=== PATIENT | male | born 1995 | race Caucasian/White ===

== ENCOUNTER 2019-12-28 12:20 | Outpatient (REF) | payer BC, SELFPAY | END 2019-12-28 12:21 | disposition home or self-care (01) | LOC: HO.WFDLDS 12:20 | PROVIDERS: Visit Provider Internal Medicine | DX: Z20.828 Contact with and (suspected) exposure to other viral communicable diseases (principal) | CPT/HCPCS: C9803; U0003 ==

== ENCOUNTER 2020-04-10 14:06 | Outpatient (REF) | payer BC, SELFPAY | END 2020-04-10 14:07 | disposition home or self-care (01) | LOC: HO.LNP 14:06 | PROVIDERS: Visit Provider Family Medicine | DX: Z20.822 Contact with and (suspected) exposure to COVID-19 (principal); R05 Cough | CPT/HCPCS: U0003; U0005 ==

== ENCOUNTER 2021-12-09 12:23 | Outpatient (REF) | payer BC, SELFPAY ==
[2021-12-09 14:31] LABS: Alanine Aminotransferase 111 U/L (0-40); Albumin Level 4.6 g/dL (3.5-5.0); Alkaline Phosphatase 49 U/L (39-117); Anion Gap 16 (12-20); Aspartate Amino Transferase 48 U/L (5-37); Bilirubin Total 0.9 mg/dL (0.0-1.0); Blood Urea Nitrogen 18 mg/dL (9-16); Calcium 9.8 mg/dL (8.4-10.2); Carbon Dioxide 25 mmol/L (22-29); Chloride 104 mmol/L (96-108); Cholesterol 167 mg/dL; Estimated Glomerular Filt Rate > 60; Glucose Fasting 91 mg/dL (60-99); HDL Cholesterol 38 mg/dL; LDL Cholesterol Calculated 106 mg/dl; Potassium 4.4 mmol/L (3.3-5.1); Sodium 141 mmol/L (135-145); Total Protein 7.7 g/dL (6.5-8.0); Triglycerides 115 mg/dL
[2021-12-09 14:49] LABS: TSH reflex Free T4 2.83 uIU/mL (0.32-4.0)
[2021-12-09 15:04] LABS: Syphilis Screen Nonreactive (Nonreactive)
[2021-12-09 16:43] LABS: CT PCR NOT DETECTED (Not Detect.); NG PCR NOT DETECTED (Not Detect.)
[2021-12-10 07:54] LABS: HBS Num1 0.38 mIU/mL (0-7.99); HBc Num1 0.11 S/CO (0.00-0.79); HBsAGNum1 0.19 S/CO (0.00-0.99); HIV AB/AG Nonreactive (Nonreactive); HIV Num 1 0.06 S/CO (0.00-0.99); Hepatitis B Core Antibody Nonreactive (Nonreactive); Hepatitis B Surface Antigen Negative (Negative); ~HepC Num1 0.15 S/CO (0.00-0.79); ~Hepatitis B Surface Antibody NONREACTIVE (Nonreactive); ~Hepatitis C Antibody Nonreactive (Nonreactive)
== END 2021-12-09 12:24 | disposition home or self-care (01) ==
LOC: HO.WFDLDS 12:23
PROVIDERS: Visit Provider Family Medicine
DX: Z00.00 Encounter for general adult medical examination without abnormal findings (principal); Z11.3 Encounter for screening for infections with a predominantly sexual mode of transmission
CPT/HCPCS: 36415; 80053; 80061; 84443; 86704; 86706; 86780; 86803; 87340; 87389; 87491; 87591

== ENCOUNTER 2022-02-26 12:29 | Outpatient (REF) | payer BC, SELFPAY ==
[2022-02-26 14:42] LABS: Anion Gap 14 (12-20)
[2022-02-26 14:47] LABS: Carbon Dioxide 24 mmol/L (22-29)
[2022-02-26 14:52] LABS: Alanine Aminotransferase 114 U/L (0-40); Albumin Level 4.4 g/dL (3.5-5.0); Alkaline Phosphatase 55 U/L (39-117); Aspartate Amino Transferase 50 U/L (5-37); Blood Urea Nitrogen 16 mg/dL (9-16); Calcium 9.5 mg/dL (8.4-10.2); Chloride 106 mmol/L (96-108); Estimated Glomerular Filt Rate > 60; Glucose Random 93 mg/dL (60-115); Potassium 4.3 mmol/L (3.3-5.1); Sodium 140 mmol/L (135-145); Total Protein 7.5 g/dL (6.5-8.0)
== END 2022-02-26 12:30 | disposition home or self-care (01) ==
LOC: HO.WFDLDS 12:29
PROVIDERS: Visit Provider Family Medicine
DX: R74.8 Abnormal levels of other serum enzymes (principal)
CPT/HCPCS: 36415; 80053

== ENCOUNTER 2022-04-21 09:48 | Outpatient (REF) | payer BC, SELFPAY ==
--- NOTE | ~2022-04-21 | US_ITS ---
EXAMINATION: US ABDOMEN LIMITED WITH LIVER ELASTOGRAPHY CLINICAL INFORMATION: Abnormal serum enzymes. COMPARISON: None. TECHNIQUE: Real-time imaging of the abdominal viscera. Noninvasive ultrasound liver fibrosis assessment is performed using Cheyanne ElastPQ point quantification shear wave elastography (2D-SWE) with a C5-2 MHz transducer. Multiple elastography samples are obtained. FINDINGS: PANCREAS: Normal. The visualized pancreatic head and body are normal in appearance. The remainder of the pancreas is obscured from visualization by the overlying bowel gas. LIVER: The liver demonstrates normal size, contour and generalized increase echogenicity. No focal lesion or intrahepatic biliary duct dilatation. The right lobe measures 19.4 cm in length. The left lobe measures 12.8 cm in length. Portal flow is towards the liver (hepatopetal). Shear wave liver elastography median stiffness is 1.75 m/s (reference: normal median stiffness is 1.3 m/s or less). IQR/median stiffness to assess sampling precision is 0.17 (reference: good quality data set is IQR/median stiffness of 0.15 or less). GALLBLADDER: Surgically absent. COMMON BILE DUCT: Normal in caliber measuring 0.5 cm in diameter. RIGHT KIDNEY: Normal. No hydronephrosis. No renal calculi or focal parenchymal lesions. The kidney measures 10.7 cm in maximum dimension. FREE FLUID: None. US/US abdomen foster w elastography IMPRESSION: 1. There is generalized increase in hepatic echotexture, consistent with fatty infiltration or hepatocellular disease. Please correlate clinically. No focal hepatic mass or intrahepatic biliary dilatation is seen. 2. There is hepatomegaly. 3. Liver elastography: Although measurements are suggestive of compensated advanced chronic liver disease, there is statistical variability of the sampling which decreases accuracy. 4. The gallbladder is surgically absent. REFERENCE: Society of Radiologists in Ultrasound Liver Stiffness Thresholds (2020): LIVER STIFFNESS THRESHOLDS: *Liver Stiffness equal or less than 1.3 m/s: High probability of being normal. *Liver Stiffness less than 1.7 m/s: In the absence of other known clinical signs, rules out compensated advanced chronic liver disease. *Liver Stiffness 1.7-2.1 m/s: Suggestive of compensated advanced chronic liver disease but need further test for confirmation. *Liver Stiffness over 2.1 m/s: Rules in compensated advanced chronic liver disease. *Liver Stiffness over 2.4 m/s: Suggestive of clinically significant portal hypertension. QUALITY OF DATA SET: *IQR/Median value equal or less than 0.15 implies a quality data set. *IQR/Median value over 0.15 implies a poor quality data set. SIGNIFICANT CHANGE FROM PRIOR EXAM: Significant change if liver stiffness measurement is 10% or greater from prior exam. OTHER CONSIDERATIONS: The stage of liver fibrosis may be overestimated in the setting of acute hepatitis, liver inflammation, elevated liver function tests, hepatic vascular congestion, obstructive cholestasis, non-fasting state, and infiltrative diseases such as amyloidosis and lymphoma. In some patients with NAFLD, the liver stiffness thresholds for compensated advanced chronic liver disease may be lower. In causes other than viral hepatitis and NAFLD, liver stiffness thresholds are not well established.
== END 2022-04-21 09:49 | disposition home or self-care (01) ==
LOC: HO.US 09:48
PROVIDERS: PCP Family Medicine; Visit Provider Family Medicine
DX: R74.8 Abnormal levels of other serum enzymes (principal)
CPT/HCPCS: 76705; 76981

== ENCOUNTER → 2022-05-26 11:27 | Outpatient (BNVA) | payer BC, SELFPAY | PROVIDERS: PCP Family Medicine; Visit Provider Physician Assistant | DX: Z13.89 Encounter for screening for other disorder (principal) ==

== ENCOUNTER 2022-05-26 12:18 | Outpatient (REF) | payer BC, SELFPAY ==
[2022-05-26 14:39] LABS: Estimated Average Glucose 111 mg/dL; Hemoglobin A1c % 5.5 %
[2022-05-26 14:44] LABS: Alanine Aminotransferase 96 U/L (0-40); Albumin Level 4.5 g/dL (3.5-5.0); Alkaline Phosphatase 49 U/L (39-117); Aspartate Amino Transferase 35 U/L (5-37); Bilirubin Direct 0.2 mg/dL (0.0-0.5); Bilirubin Total 0.6 mg/dL (0.0-1.0); Lipase 38 U/L (8-78); Total Protein 7.2 g/dL (6.5-8.0)
[2022-05-26 15:02] LABS: Ferritin 189 ng/mL (20-250)
[2022-05-27 16:24] LABS: Alpha 1 Anti-trypsin 109 mg/dL (83-199); Ceruloplasmin 24 mg/dL (18-36)
[2022-05-29 23:29] LABS: Smooth Muscle Antibody <20 U (<20)
[2022-05-31 09:28] LABS: Anti Nuclear Antibody Screen NEGATIVE (NEGATIVE)
[2022-06-02 14:39] LABS: Mitochondrial Antibodies NEGATIVE (NEGATIVE)
[2022-06-05 08:39] LABS: Soluble Liver Ag Autoantibody <20.1 U (0.0-20.0)
== END 2022-05-26 12:19 | disposition home or self-care (01) ==
LOC: HO.WFDLDS 12:18
PROVIDERS: Visit Provider Physician Assistant
DX: R74.01 Elevation of levels of liver transaminase levels (principal); R74.8 Abnormal levels of other serum enzymes; R10.11 Right upper quadrant pain
CPT/HCPCS: 36415; 80076; 82103; 82390; 82728; 83036; 83520; 83690; 86015; 86038; 86039; 86255; 86256

== ENCOUNTER → 2022-06-15 11:09 | Outpatient (BNVA) | payer BC, SELFPAY | PROVIDERS: PCP Family Medicine; Visit Provider Physician Assistant | DX: Z13.89 Encounter for screening for other disorder (principal) ==

== ENCOUNTER 2022-10-13 11:48 | Outpatient (REF) | payer BC, OTHER, SELFPAY ==
[2022-10-13 15:17] LABS: Alanine Aminotransferase 36 U/L (0-40); Albumin Level 4.4 g/dL (3.5-5.0); Alkaline Phosphatase 53 U/L (39-117); Anion Gap 10 (12-20); Aspartate Amino Transferase 23 U/L (5-37); Bilirubin Direct 0.3 mg/dL (0.0-0.5); Bilirubin Total 0.8 mg/dL (0.0-1.0); Blood Urea Nitrogen 14 mg/dL (9-16); Calcium 9.9 mg/dL (8.4-10.2); Carbon Dioxide 28 mmol/L (22-29); Chloride 105 mmol/L (96-108); Cholesterol 142 mg/dL (<200); Estimated Glomerular Filt Rate > 60; Glucose Fasting 89 mg/dL (60-99); HDL Cholesterol 36 mg/dL (>40); LDL Cholesterol Calculated 86 mg/dL (<100); Potassium 4.1 mmol/L (3.3-5.1); Sodium 139 mmol/L (135-145); Total Protein 7.6 g/dL (6.5-8.0); Triglycerides 104 mg/dL (<150)
[2022-10-13 15:27] LABS: Estimated Average Glucose 103 mg/dL; Hemoglobin A1C 126.1365 umol/L; Hemoglobin A1c % 5.2 % (<6.0)
[2022-10-13 15:31] LABS: TSH reflex Free T4 3.36 uIU/mL (0.32-4.0)
[2022-10-13 15:37] LABS: Appearance Urine Clear; Color Urine Dark Yellow; Glucose Urine UA Negative (Negative); Leukocyte Esterase Urine Negative (Negative); Nitrite Urine Negative (Negative); Specific Gravity - Urine >= 1.030 (1.005-1.025); Urine Blood Negative (Negative); Urine Ketones Negative (Negative); Urine Protein Trace mg/dL (Neg-Trace)
[2022-10-13 16:41] LABS: Creatinine Urine 313.19 mg/dL; Microalbum/Creatinine Ratio Ur 2.2 ug/mg cr (<30)
== END 2022-10-13 11:49 | disposition home or self-care (01) ==
LOC: HO.WFDLDS 11:48
PROVIDERS: Physician Assistant; Visit Provider Family Medicine
DX: Z00.00 Encounter for general adult medical examination without abnormal findings (principal); R10.11 Right upper quadrant pain; R74.8 Abnormal levels of other serum enzymes; R16.0 Hepatomegaly, not elsewhere classified; E66.9 Obesity, unspecified; I10 Essential (primary) hypertension; E78.6 Lipoprotein deficiency
CPT/HCPCS: 36415; 80053; 80061; 80076; 81003; 82043; 82248; 83036; 84443

== ENCOUNTER 2022-10-19 11:56 | Outpatient (AMB) | payer BC, OTHER, SELFPAY ==
--- NOTE | 2022-10-19 11:58 | A.OFFVIS_ITS ---
Intake Vital Signs 10/19/22 12:06 Height 5 ft 9 in Weight 219 lb BMI 32.3 BP 119/68 Blood Pressure Location Lt brachial Position Sitting Pulse 73 Intake Visit Reasons: follow up Intake Note: Patient follow up for elevated liver and lab results. Patient denies any other GI issues. 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 Accompanied by: Self / Same As Patient Allergies No Known Allergies [No Known Allergies*] Allergy (Verified 10/19/22 11:57) HPI HPI Comments History of Present Illness Details A very pleasant 26-year-old male referred with elevated liver enzymes f/u- He has discontinued alcohol together, as well as dietary modifications - lost weight- he is happy about- Works [employer] manager- Has no GI or general complaints- Reviewed labs, U/S from April- Opportunity for questions [facility] Medical History COVID-19 Erythema migrans (Lyme disease) Surgical History Hx of cholecystectomy Family History Father Diabetes Social History Household Members Other:: alone Housing: Apartment Patient Tobacco Use Status: Former Tobacco user Tobacco use type: Cigarette e-Cigarette/Vaping Use: Currently Using Second Hand Smoke Exposure: No service: No Current occupational status: employed Current occupational exposures/hazards: No Cognitive needs: No Hearing needs: No Vision needs: No Review of Systems Const All systems reviewed & are unremarkable except as noted in HPI and below Card Denies chest pain and Denies dyspnea Resp Denies dyspnea GI Denies abdominal pain, Denies hematochezia, Denies change in bowel habits, Denies nausea and Denies vomiting Psych Denies anxiety Physical Exam Vital Signs: Last Vital Signs Pulse 73 10/19/22 12:06 BP 119/68 10/19/22 12:06 BMI result Body Mass Index 32.3 Const General: cooperative, healthy appearing and comfortable Orientation/consciousness: patient oriented x3 Limitations: no limitations Eyes Sclerae: sclerae normal Skin General skin exam: no rashes or lesions noted Neuro General: patient oriented x3 Extrem General: Yes full ROM Psych Appearance: grossly normal and well kempt Mental Status: mental status grossly normal Speech and movement: Normal speech and movement present and Clear speech present Affect: normal affect Attitude: cooperative Thought process: Normal thought process present Thought content: Normal thought content present Insight: Good insight present (Psych) Judgement: Good judgement present (Psych) Results Reviewed Results Reviewed: US/US abdomen foster w elastography IMPRESSION: ? 1. There is generalized increase in hepatic echotexture, consistent with fatty infiltration or hepatocellular disease. Please correlate clinically. No focal hepatic mass or intrahepatic biliary dilatation is seen. ? 2. There is hepatomegaly. ? 3. Liver elastography:? Although measurements are suggestive of compensated advanced chronic liver disease, there is statistical variability of the sampling which decreases accuracy. Assessment & Plan Assessment & Plan (1) Elevated liver enzymes: Comment: Likely fatty liver Recommend hepatitis-B vaccine-not available here in our [place] office-however will discuss with PCP Continue alcohol abstinence as well as dietary modifications good glucose cholesterol and weight control Repeat labs 6 months- he may f/u with pcp if he prefers- Code(s): R74.8 - Abnormal levels of other serum enzymes Plan repeat enzymes 6 months HBVaccine- pcp Patient Instructions: Continue to abstain from etoh- dietary modifications- Repeat liver enzymes in 6 months-03/2023- will discuss Hep B vaccine with pcp Encouraged to call with questions or concerns Coding Level of Care Code Est Pt Level 3 (78493) Diagnoses Elevated liver enzymes R74.8 Time Spent (min) 25
[2022-10-19 12:06] VITALS: BP 119/68; PULSE 73; BMI 32.3
== END 2022-10-19 14:00 | disposition home or self-care (01) ==
LOC: HO.HGIW 11:56
PROVIDERS: PCP Family Medicine; Visit Provider Physician Assistant
DX: R74.8 Abnormal levels of other serum enzymes (principal)
CPT/HCPCS: 99213

== ENCOUNTER → 2022-10-19 11:56 | Outpatient (BNVA) | payer BC, OTHER, SELFPAY | PROVIDERS: PCP Family Medicine; Visit Provider Physician Assistant ==

== ENCOUNTER 2022-11-02 11:58 | Outpatient (AMB) | payer BC, SELFPAY ==
--- NOTE | 2022-11-02 12:02 | MHC.PC.OV ---
Vital Signs 11/02/22 12:03 Height 5 ft 9 in Weight 219 lb 4 oz BMI 32.4 BP 118/68 Blood Pressure Location Rt brachial Pulse 76 Pulse Source Pulse Oximeter Pulse Oximetry (%) 96 Oxygen Delivery Method Room Air Intake Visit Reasons: CPE with f/u labs and health maintenance Intake Note: Patient is here for his physical today with no concerns. Allergies No Known Allergies [No Known Allergies*] Allergy (Verified 11/02/22 12:04) Tobacco use date assessed: 11/02/22 Dental Screening Did you have a dental visit in the last 12 months?: Yes Did you have a dental problem in the last 6 months where you did not have access to dental care?: No Was dental information given to patient?: Patient has dentist HPI CPE with f/u labs and health maintenance HPI Details 26 y/o male presents for a CPE with f/u labs and health maintenance. Labs were drawn 10/13/22. Reviewed labs with pt. Triglycerides 104. TC 142. LDL 86. HDL low at 36. Liver enzymes now within normal range. Has followed up with GI for his liver enzymes. Pt continues to work on a healthy diet. [facility] Medical History Erythema migrans (Lyme disease) COVID-19 Surgical History Hx of cholecystectomy Family History Father Diabetes Social History Household Members Other:: alone Housing: Apartment Patient Tobacco Use Status: Former Tobacco user Tobacco use type: Cigarette e-Cigarette/Vaping Use: Currently Using Second Hand Smoke Exposure: No service: No Current occupational status: employed Current occupational exposures/hazards: No Cognitive needs: No Hearing needs: No Vision needs: No Questionnaire TERENCE-7 AMB Questionnaire TERENCE-7 Date TERENCE - 7 assessed: 03/31/22 Source: Developed by Drs. Filemon Jones, Annmarie Berry, Aung Tidwell and colleagues, with an educational binta from [employer]. Review of Systems Const Denies chills, Denies fatigue, Denies fever(s), Denies headache(s) and Denies weakness Eyes Denies change in vision ENT Denies dizziness, Denies headache(s), Denies hearing loss, Denies nasal congestion, Denies sinus pain, Denies sinus pressure and Denies sore throat Card Denies chest pain, Denies lightheadedness, Denies dyspnea and Denies other (palpitations) Resp Denies cough, Denies dyspnea and Denies wheezing GI Denies abdominal pain, Denies melena, Denies hematochezia, Denies change in bowel habits, Denies dyspepsia and Denies nausea Denies hematuria and Denies dysuria Musc Denies abnormal gait, Denies myalgias, Denies arthralgias, Denies numbness and Denies tingling Skin/Breast Denies rash, Denies unusual bruising and Denies wounds Neuro Denies abnormal gait, Denies dizziness, Denies headache(s), Denies memory loss, Denies numbness, Denies Sensory deficit (Neuro), Denies tingling and Denies weakness Psych Denies anxiety, Denies depression and Denies memory loss Endo Denies cold intolerance, Denies fatigue, Denies heat intolerance, Denies polydipsia and Denies polyuria Clint/Lymph Denies easy bleeding and Denies easy bruising Aller/Immun Denies wheezing Physical exam (Primary Care) Vital Signs: Last Vital Signs Pulse 76 11/02/22 12:03 BP 118/68 11/02/22 12:03 Pulse Ox 96 11/02/22 12:03 Oxygen Delivery Method Room Air 11/02/22 12:03 BMI result Body Mass Index 32.4 Tobacco/Smoking Status: Tobacco use Status Tobacco use date assessed 11/02/22 11/02/22 12:05 Patient Tobacco Use Status Former Tobacco user 11/02/22 12:05 Tobacco use type Cigarette 11/02/22 12:05 e-Cigarette/Vaping Use Currently Using 11/02/22 12:05 Const General: no acute distress, well developed, alert and awake Nutritional Appearance: well nourished Orientation/consciousness: patient oriented x3 HENMT Head: Yes normocephalic and Yes atraumatic Ears: hearing grossly normal bilaterally and TM's normal bilaterally General nose exam: Normal external nose present and Normal nares present Mouth: Normal oral and palatal mucosa present and moist mucous membranes Teeth and gingiva: dentition normal Throat: Yes posterior oropharynx normal Eyes General: appearance normal, both eyes and all related structures Pupils: Equal, round and reactive pupils present and Pupil accommodation reflex normal EOM: EOMs intact bilaterally Neck Neck: Yes normal visual inspection, Yes no lymphadenopathy and Yes trachea midline Thyroid: Thyroid normal Carotids: no bruits Lymphatic: no lymphadenopathy noted Chest Chest palpation & inspection: normal inspection of the chest Resp Effort & Inspection: normal respiratory effort Auscultation: clear to auscultation bilaterally Cardio Rate: regular rate Rhythm: regular rhythm Heart sounds: S1 normal heart sound present, S2 normal heart sound present, no gallops, no murmurs and no rubs Bruits: no abdominal aortic bruits and no carotid bruits GI Palpation (GI): No Abdominal aortic bruit present, Soft to palpation, nontender, No hepatosplenomegaly present and No Rebound tenderness present Auscultation: normal bowel sounds General: Yes no CVA tenderness Back/Spine/Pelvis Back: no CVA tenderness Cervical Spine: cervical ROM normal and No Cervical spine tenderness Thoracic/Lumbar Spine: thoraco-lumbar ROM normal, No pain with thoraco-lumbar ROM, No thoracic spinal tenderness and No lumbar spinal tenderness Skin Lesions: no lesions Rashes: no rashes Trauma: no lacerations or abrasions Wounds: no wounds Nails: normal Neuro General: patient oriented x3 Cranial nerves: Yes Equal, round and reactive pupils present Cognition (Neuro): normal cognition Gait exam (Neuro): Normal gait present Motor exam (neuro): 5/5 motor strength present throughout Sensory Exam: No Sensory deficit (Neuro) Deep tendon reflexes (DTR's): Right patellar reflex intensity grade: 2+ and Left patellar reflex intensity grade: 2+ Extrem General: Yes normal to inspection and No edema Psych Appearance: grossly normal Affect: normal affect Attitude: cooperative Thought process: Normal thought process present Assessment and Plan Assessment & Plan (1) Adult general medical exam: Code(s): Z00.00 - Encounter for general adult medical examination without abnormal findings Plan: 26-year-old male presents for complete physical exam Encouraged healthy diet with active lifestyle and plenty of exercise Due for hepatitis-B vaccine and I have ordered this. (2) Elevated liver enzymes: Code(s): R74.8 - Abnormal levels of other serum enzymes Plan: Patient has had ongoing weight loss and liver enzymes are now within normal range. Encouraged ongoing weight loss He can repeat his liver enzymes at 3 in 6 months. Subsequently if there are okay he will get them reach checked at his annual physical. 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 Panel 10 Weeks R74.8 - Abnormal levels of other serum enzymes Hepatitis B Adult Immunization Today Z23 - Encounter for immunization Comprehensive [place]. Panel Fast 5 Months R74.8 - Abnormal levels of other serum enzymes, Z00.00 - Encounter for general adult medical examination without abnormal findings Medications: New Recombivax HB (PF) (hepatitis B virus vacc.rec(PF)) 1.0 mL IM ONCE 1 mL 0RF NS Z23 - Encounter for immunization Coding Level of Care Code Est Pt Level 3 (48134) Est Pt Prev Care 18-39y(24229) Diagnoses Adult general medical exam Z00.00 Elevated liver enzymes R74.8 Obesity E66.9 Low HDL (under 40) E78.6
[2022-11-02 12:03] VITALS: BP 118/68; PULSE 76; O2SAT 96; BMI 32.4
--- NOTE | 2022-11-02 12:56 | AM.OFFVISNUR ---
Intake Vital Signs 11/02/22 12:03 Height 5 ft 9 in Weight 219 lb 4 oz BMI 32.4 BP 118/68 Blood Pressure Location Rt brachial Pulse 76 Pulse Source Pulse Oximeter Pulse Oximetry (%) 96 Oxygen Delivery Method Room Air Intake Visit Reasons: CPE with f/u labs and health maintenance Allergies No Known Allergies [No Known Allergies*] Allergy (Verified 11/02/22 12:04) Nursing Note md office visit and new order for hep B vaccine. given left deltoid and tolerated fine. to make f/u nneka't for next vaccine. Immunizations Recombivax HB (PF) 10 mcg/mL intramuscular suspension Performing Provider: Flavio Grijalva MD Performing Location: [facility] Administered by: Akanksha Marrero RN on 11/02/22 13:00 Dose Route Admin Location Dispensed Lot Number Expiration Date [facility] Veneer Sample Maker 1 mL IM Left Deltoid 1 mL [id number] 07/17/23 32889-197-05 [employer] VIS Given Date VIS Provided VIS Publication Date 11/02/22 Single Vaccine 20 Eligibility Eligibility Date Funding Source Not [facility] Eligible 11/02/22 Private Coding Diagnoses Adult general medical exam Z00.00 Elevated liver enzymes R74.8 Obesity E66.9 Low HDL (under 40) E78.6 Assessment & Plan Assessment & Plan (1) Adult general medical exam: Code(s): Z00.00 - Encounter for general adult medical examination without abnormal findings (2) Elevated liver enzymes: Code(s): R74.8 - Abnormal levels of other serum enzymes (3) Obesity: Code(s): E66.9 - Obesity, unspecified (4) 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 Panel 10 Weeks R74.8 - Abnormal levels of other serum enzymes Hepatitis B Adult Immunization Today Z23 - Encounter for immunization Comprehensive [place]. Panel Fast 5 Months R74.8 - Abnormal levels of other serum enzymes, Z00.00 - Encounter for general adult medical examination without abnormal findings
== END 2022-11-02 12:57 | disposition home or self-care (01) ==
PROVIDERS: Visit Provider Family Medicine
DX: Z23 Encounter for immunization (principal); Z00.00 Encounter for general adult medical examination without abnormal findings; R74.8 Abnormal levels of other serum enzymes; E66.9 Obesity, unspecified; Z68.32 Body mass index [BMI] 32.0-32.9, adult; E78.6 Lipoprotein deficiency
CPT/HCPCS: 90471; 90746; 99395

== ENCOUNTER 2023-02-01 11:58 | Outpatient (AMB) | payer BC, OTHER, SELFPAY ==
--- NOTE | 2023-02-01 12:15 | AM.OFFVISNUR ---
Intake Intake Visit Reasons: 2nd hep b shot Allergies No Known Allergies [No Known Allergies*] Allergy (Verified 11/02/22 12:04) Immunizations Engerix-B (PF) 20 mcg/mL intramuscular suspension Performing Provider: Flavio Grijalva MD Performing Location: [facility] Administered by: Akanksha Marrero RN on 02/01/23 12:15 Dose Route Admin Location Dispensed Lot Number Expiration Date NDC Shoe Dresser 1 mL IM Right Deltoid 1 mL [id number] 08/14/23 50959-006-71 [email or web address] VIS Given Date VIS Provided VIS Publication Date 02/01/23 Single Vaccine 22 Eligibility Eligibility Date Funding Source Not [facility] Eligible 02/01/23 Private Coding Assessment & Plan Assessment & Plan Orders: Orders Hepatitis B Adult Immunization Today Z23 - Encounter for immunization
== END 2023-02-01 12:14 | disposition home or self-care (01) ==
PROVIDERS: PCP Family Medicine; Visit Provider Family Medicine
DX: Z23 Encounter for immunization (principal)
CPT/HCPCS: 90471; 90746

== ENCOUNTER 2023-08-03 11:58 | Outpatient (AMB) | payer BC, OTHER, SELFPAY ==
--- NOTE | 2023-08-03 12:40 | AM.OFFVISNUR ---
Intake Intake Visit Reasons: 3rd hep b shot Allergies No Known Allergies [No Known Allergies*] Allergy (Verified 11/02/22 12:04) Nursing Note Pt presented in office to receive his third Hepatitis B vaccine. Injection given intramuscularly in the left deltoid. VIS given to pt, pt left the office. Immunizations Engerix-B (PF) 20 mcg/mL intramuscular syringe Performing Provider: Flavio Grijalva MD Performing Location: [facility] Administered by: Stephany Lynch RN on 08/03/23 12:10 Dose Route Admin Location Dispensed Lot Number Expiration Date [facility] Fraud Manager 1 mL IM Left Deltoid 1 mL [id number] 01/21/24 50468-678-14 [employer] VIS Given Date VIS Provided VIS Publication Date 08/03/23 Single Vaccine 22 Eligibility Eligibility Date Funding Source Not [facility] Eligible 08/03/23 Private Coding Assessment & Plan Assessment & Plan Orders: Orders Hepatitis B Adult Immunization Today Z23 - Encounter for immunization Medications: New Engerix-B (PF) (hepatitis B virus vacc.rec(PF)) 1 mL IM ONCE 1 mL 0RF NS Z23 - Encounter for immunization
== END 2023-08-03 12:46 | disposition home or self-care (01) ==
PROVIDERS: PCP Family Medicine; Visit Provider Family Medicine
DX: Z23 Encounter for immunization (principal)
CPT/HCPCS: 90471; 90746

== ENCOUNTER 2023-11-04 11:58 | Outpatient (AMB) | payer BC, OTHER, SELFPAY ==
--- NOTE | 2023-11-04 12:14 | MHC.PC.OV ---
Vital Signs 11/04/23 12:18 Height 5 ft 9 in Weight 230 lb 8 oz BMI 34.0 BP 100/60 Blood Pressure Location Rt brachial Position Sitting Respiration 12 Pulse 71 Pulse Source Pulse Oximeter Temp 97.4 F Temp Source Tympanic Pulse Oximetry (%) 96 Oxygen Delivery Method Room Air Intake Visit Reasons: cpe Intake Note: CPE Allergies No Known Allergies [No Known Allergies*] Allergy (Verified 11/04/23 12:15) Medication List - Last Reconciled 11/04/23 by Flavio Grijalva MD No Known Home Meds Tobacco use date assessed: 11/04/23 Dental Screening Dental Screen Date: 11/04/23 Did you have a dental visit in the last 12 months?: Yes Did you have a dental problem in the last 6 months where you did not have access to dental care?: No Was dental information given to patient?: Patient has dentist HPI cpe HPI Details 27 y/o male presents for a CPE with f/u labs. No recent labs to review. HPI Comments History of Present Illness Details Documentation assistance for Flavio Grijalva MD, was provided by Alfonso Mann, Physical Education Aide on 11/04/2023 at 12:38 PM EST. I, Dr. Grijalva, have read, observed, and verified documentation. PFSH Medical History Erythema migrans (Lyme disease) COVID-19 Surgical History Hx of cholecystectomy Family History Father Diabetes Social History (Updated 11/04/23 @ 12:15 by Giovanni Mendoza MA) Household Members Other:: alone Housing: Apartment Patient Tobacco Use Status: Former Tobacco user Tobacco use type: Cigarette e-Cigarette/Vaping Use: Currently Using Second Hand Smoke Exposure: No Use of substances other than those prescribed or required for medical reasons: No service: No Current occupational status: employed Current occupational exposures/hazards: No Cognitive needs: No Hearing needs: No Vision needs: No Questionnaire PHQ-9 Over the last 2 weeks, how often have you been bothered by any of the following problems? 1. Little interest or pleasure in doing things: not at all 2. Feeling down, depressed, or hopeless: not at all 3. Trouble falling or staying asleep, or sleeping too much: not at all 4. Feeling tired or having little energy: not at all 5. Poor appetite or overeating: not at all 6. Feeling bad about yourself - or that you are a failure or have let yourself or your family down: not at all 7. Trouble concentrating on things, such as reading the newspaper or watching television: not at all 8. Moving or speaking so slowly that other people could have noticed. Or the opposite - being so fidgety or restless that you have been moving around a lot more than usual: not at all 9. Thoughts that you would be better off or of hurting yourself in some way: not at all Total score: 0 Depression Screening Interpretation: Negative Depression Screening Done: Yes 42867 - PHQ-9 Billing: Yes Source: Developed by Drs. Filemon Jones, Annmarie Berry, Aung Tidwell and colleagues, with an educational binta from [employer]. Thrive Questionnaire Date Thrive assessed: 11/04/23 I am a: Patient What is your living situation today?: I have a steady place to live Within the past 12 months, did the food you bought not last and you didn't have the money to get more?: Never true Within the past 12 months, did you worry whether your food would run out before you got money to buy more?: Never true Do you have trouble paying for medicines?: No Do you have trouble getting transportation to medical appointments?: No Do you have trouble paying your heating and electricity bill?: No Do you have trouble taking care of your child, family member or friend?: No Do you have trouble with day-to-day activities such as bathing, preparing meals, shopping, managing finances, etc.?: No Are you currently unemployed and looking for a job?: No Are you interested in more education?: No Please select the resources that you would like help with: None Currently or been in a relationship where the following occur: No concerns reported THRIVE Score: 0 AUDIT C Alcohol Use Questionnaire (AUDIT-C) 1. How often do you have a drink containing alcohol?: Monthly or less 2. How many drinks containing alcohol do you have on a typical day when you are drinking?: 1 or 2 3. How often do you have six or more drinks on one occasion?: Never Total Score: 1 TERENCE-7 AMB Questionnaire TERENCE-7 Date TERENCE - 7 assessed: 11/04/23 Feeling nervous, anxious, or on edge: 0 = Not at all Not being able to stop or control worryin = Not at all Worrying too much about different things: 0 = Not at all Trouble relaxin = Not at all Being so restless that it is hard to sit still: 0 = Not at all Becoming easily annoyed or irritable: 0 = Not at all Feeling afraid as if something awful might happen: 0 = Not at all Total TERENCE-7 score (0-4 normal; 5-9 mild; 10-14 moderate; 15-21 severe): 0 Source: Developed by Drs. Filemon Jones, Annmarie Berry, Aung Tidwell and colleagues, with an educational binta from [employer]. TERENCE-7 Assessment Billing TERENCE-7 Assessment Tool: TERENCE-7 Assessment 83499 Review of Systems Const Denies chills, Denies fatigue, Denies fever(s), Denies headache(s) and Denies weakness Eyes Denies change in vision ENT Denies dizziness, Denies headache(s), Denies hearing loss, Denies nasal congestion, Denies sinus pain, Denies sinus pressure and Denies sore throat Card Denies chest pain, Denies lightheadedness, Denies dyspnea and Denies other (palpitations) Resp Denies cough, Denies dyspnea and Denies wheezing GI Denies abdominal pain, Denies melena, Denies hematochezia, Denies change in bowel habits, Denies dyspepsia and Denies nausea Denies hematuria and Denies dysuria Musc Denies abnormal gait, Denies myalgias, Denies arthralgias, Denies numbness and Denies tingling Skin/Breast Denies rash, Denies unusual bruising and Denies wounds Neuro Denies abnormal gait, Denies dizziness, Denies headache(s), Denies memory loss, Denies numbness, Denies Sensory deficit (Neuro), Denies tingling and Denies weakness Psych Denies anxiety, Denies depression and Denies memory loss Endo Denies cold intolerance, Denies fatigue, Denies heat intolerance, Denies polydipsia and Denies polyuria Clint/Lymph Denies easy bleeding and Denies easy bruising Aller/Immun Denies wheezing Physical exam (Primary Care) Vital Signs: Last Vital Signs Temp 97.4 F 11/04/23 12:18 Pulse 71 11/04/23 12:18 Resp 12 11/04/23 12:18 BP 100/60 11/04/23 12:18 Pulse Ox 96 11/04/23 12:18 Oxygen Delivery Method Room Air 11/04/23 12:18 BMI result Body Mass Index 34.0 Tobacco/Smoking Status: Tobacco use Status Tobacco use date assessed 11/04/23 11/04/23 12:18 Patient Tobacco Use Status Former Tobacco user 11/04/23 12:15 Tobacco use type Cigarette 11/04/23 12:15 e-Cigarette/Vaping Use Currently Using 11/04/23 12:15 PHQ-9: PHQ-9 Score PHQ-9: Total score 0 11/04/23 12:18 Depression Screening Interpretation: Negative Thrive Assessment: Date of Thrive Assessment Date Thrive assessed 11/04/23 11/04/23 12:18 Currently or been in a relationship where the following occur: No concerns reported Const General: no acute distress, well developed, alert and awake Nutritional Appearance: well nourished Orientation/consciousness: patient oriented x3 HENMT Head: Yes normocephalic and Yes atraumatic Ears: hearing grossly normal bilaterally and TM's normal bilaterally General nose exam: Normal external nose present and Normal nares present Mouth: Normal oral and palatal mucosa present and moist mucous membranes Teeth and gingiva: dentition normal Throat: Yes posterior oropharynx normal Eyes General: appearance normal, both eyes and all related structures Pupils: Equal, round and reactive pupils present and Pupil accommodation reflex normal EOM: EOMs intact bilaterally Neck Neck: Yes normal visual inspection, Yes no lymphadenopathy and Yes trachea midline Thyroid: Thyroid normal Carotids: no bruits Lymphatic: no lymphadenopathy noted Chest Chest palpation & inspection: normal inspection of the chest Resp Effort & Inspection: normal respiratory effort Auscultation: clear to auscultation bilaterally Cardio Rate: regular rate Rhythm: regular rhythm Heart sounds: S1 normal heart sound present, S2 normal heart sound present, no gallops, no murmurs and no rubs Bruits: no abdominal aortic bruits and no carotid bruits GI Palpation (GI): No Abdominal aortic bruit present, Soft to palpation, nontender, No hepatosplenomegaly present and No Rebound tenderness present Auscultation: normal bowel sounds General: Yes no CVA tenderness Back/Spine/Pelvis Back: no CVA tenderness Cervical Spine: cervical ROM normal and No Cervical spine tenderness Thoracic/Lumbar Spine: thoraco-lumbar ROM normal, No pain with thoraco-lumbar ROM, No thoracic spinal tenderness and No lumbar spinal tenderness Skin Lesions: no lesions Rashes: no rashes Trauma: no lacerations or abrasions Wounds: no wounds Nails: normal Neuro General: patient oriented x3 Cranial nerves: Yes Equal, round and reactive pupils present Cognition (Neuro): normal cognition Gait exam (Neuro): Normal gait present Motor exam (neuro): 5/5 motor strength present throughout Sensory Exam: No Sensory deficit (Neuro) Deep tendon reflexes (DTR's): Right patellar reflex intensity grade: 2+ and Left patellar reflex intensity grade: 2+ Extrem General: Yes normal to inspection and No edema Psych Appearance: grossly normal Affect: normal affect Attitude: cooperative Thought process: Normal thought process present Assessment and Plan Assessment & Plan (1) Adult general medical exam: Code(s): Z00.00 - Encounter for general adult medical examination without abnormal findings Plan: 27-year-old?male?presents?for?complete?physical?exam Encouraged?healthy?diet?with?active?lifestyle?and?plenty?of?exercise (2) Elevated liver enzymes: Code(s): R74.8 - Abnormal levels of other serum enzymes Plan: Previously?elevated?liver?enzymes which?had?normalized?at?last?check Will?repeat?this?with?his?next?set?of?labs - continuing?to?monitor (3) Low HDL (under 40): Code(s): E78.6 - Lipoprotein deficiency Plan: Has?had?previously?low?HDL Checking?lipids?with?next?lab?draw Orders: Orders UA and rflx microscopic Today Z00.00 - Encounter for general adult medical examination without abnormal findings Comprehensive [place]. Panel Fast Today Z00.00 - Encounter for general adult medical examination without abnormal findings Lipid Panel Today Z00.00 - Encounter for general adult medical examination without abnormal findings TSH reflex Free T4 Today Z00.00 - Encounter for general adult medical examination without abnormal findings Microalbumin, Random (w Creat) Today I10 - Essential (primary) hypertension Coding Level of Care Code Est Pt Level 3 (37458) Est Pt Prev Care 18-39y(05775) Diagnoses Adult general medical exam Z00.00 Elevated liver enzymes R74.8 Low HDL (under 40) E78.6 Additional Codes TERENCE-7 Assessment Billing - TERENCE-7 Assessment Tool: TERENCE-7 Assessment 61160 ([id number])
[2023-11-04 12:18] VITALS: BP 100/60; PULSE 71; RESP 12; TEMP 36.3; O2SAT 96; BMI 34.0
== END 2023-11-04 13:55 | disposition home or self-care (01) ==
PROVIDERS: PCP Family Medicine; Visit Provider Family Medicine
DX: Z00.00 Encounter for general adult medical examination without abnormal findings (principal); R74.8 Abnormal levels of other serum enzymes; E78.6 Lipoprotein deficiency

== ENCOUNTER → 2023-11-04 11:58 | Outpatient (BNVA) | payer BC, OTHER, SELFPAY | PROVIDERS: PCP Family Medicine; Visit Provider Family Medicine | DX: Z00.00 Encounter for general adult medical examination without abnormal findings (principal); R74.8 Abnormal levels of other serum enzymes; E78.6 Lipoprotein deficiency | CPT/HCPCS: 96127 ==

== ENCOUNTER 2023-11-18 13:15 | Outpatient (REF) | payer BC, OTHER, SELFPAY ==
[2023-11-18 18:10] LABS: Appearance Urine Clear; Color Urine Yellow; Glucose Urine UA Negative (Negative); Leukocyte Esterase Urine Negative (Negative); Nitrite Urine Negative (Negative); Urine Blood Negative (Negative); Urine Ketones Negative (Negative); Urine Protein Negative (Neg-Trace)
[2023-11-18 18:52] LABS: Creatinine Urine 79.83 mg/dL; Microalbumin Urine < 5.0 mg/L
[2023-11-18 18:59] LABS: Alanine Aminotransferase 59 U/L (0-40); Albumin Level 4.4 g/dL (3.5-5.0); Alkaline Phosphatase 54 U/L (39-117); Anion Gap 9 (12-20); Aspartate Amino Transferase 28 U/L (5-37); Bilirubin Total 0.6 mg/dL (0.0-1.0); Blood Urea Nitrogen 15 mg/dL (9-16); Calcium 9.5 mg/dL (8.4-10.2); Carbon Dioxide 25 mmol/L (22-29); Chloride 107 mmol/L (96-108); Cholesterol 156 mg/dL (<200); Estimated Glomerular Filt Rate > 60; Glucose Fasting 97 mg/dL (60-99); Glucose Random 97 mg/dL (60-115); HDL Cholesterol 38 mg/dL (>40); LDL Cholesterol Calculated 89 mg/dL (<100); Potassium 4.1 mmol/L (3.3-5.1); Sodium 137 mmol/L (135-145); Total Protein 7.7 g/dL (6.5-8.0); Triglycerides 149 mg/dL (<150)
[2023-11-18 19:13] LABS: TSH reflex Free T4 2.37 uIU/mL (0.32-4.0)
== END 2023-11-18 13:16 | disposition home or self-care (01) ==
LOC: HO.WFDLDS 13:15
PROVIDERS: Visit Provider Family Medicine
DX: Z00.00 Encounter for general adult medical examination without abnormal findings (principal); R74.8 Abnormal levels of other serum enzymes; I10 Essential (primary) hypertension
CPT/HCPCS: 36415; 80053; 80061; 81003; 82570; 84443

== ENCOUNTER 2024-04-16 11:47 | Outpatient (AMB) | payer OTHER, SELFPAY ==
--- NOTE | 2024-04-16 12:06 | A.OFFPC_ITS ---
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 Labs drawn 11/18/23. Reviewed labs with pt. Elevated ALT of 59. Triglycerides 149. TC 156. LDL 89. HDL low at 38. HPI Comments History of Present Illness Details Documentation assistance for Flavio Grijalva MD, was provided by Alfonso Mann, Patient Care Manager on 04/16/2024 at 12:13 PM EST. I, Dr. Grijalva, have read, observed, and verified documentation. [facility] Medical History Erythema migrans (Lyme disease) COVID-19 Surgical History Hx of cholecystectomy Family History Father Diabetes Social History (Updated 11/04/23 @ 12:15 by Giovanni Mendoza [facility]) Household Members Other:: alone Housing: Apartment Patient Tobacco Use Status: Former Tobacco user Tobacco use type: Cigarette e-Cigarette/Vaping Use: Currently Using Second Hand Smoke Exposure: No service: No Current occupational status: employed Current occupational exposures/hazards: No Cognitive needs: No Hearing needs: No Vision needs: No Questionnaire PHQ-9 Over the last 2 weeks, how often have you been bothered by any of the following problems? 1. Little interest or pleasure in doing things: not at all 2. Feeling down, depressed, or hopeless: not at all 3. Trouble falling or staying asleep, or sleeping too much: not at all 4. Feeling tired or having little energy: not at all 5. Poor appetite or overeating: not at all 6. Feeling bad about yourself - or that you are a failure or have let yourself or your family down: not at all 7. Trouble concentrating on things, such as reading the newspaper or watching television: not at all 8. Moving or speaking so slowly that other people could have noticed. Or the opposite - being so fidgety or restless that you have been moving around a lot more than usual: not at all 9. Thoughts that you would be better off or of hurting yourself in some way: not at all Total score: 0 Source: Developed by Drs. Filemon Jones, Annmarie Berry, Aung Tidwell and colleagues, with an educational binta from [email or web address]. Thrive Questionnaire Date Thrive assessed: 11/04/23 I am a: Patient What is your living situation today?: I have a steady place to live Within the past 12 months, did the food you bought not last and you didn't have the money to get more?: Never true Within the past 12 months, did you worry whether your food would run out before you got money to buy more?: Never true Do you have trouble paying for medicines?: No Do you have trouble getting transportation to medical appointments?: No Do you have trouble paying your heating and electricity bill?: No Do you have trouble taking care of your child, family member or friend?: No Do you have trouble with day-to-day activities such as bathing, preparing meals, shopping, managing finances, etc.?: No Are you currently unemployed and looking for a job?: No Are you interested in more education?: No Please select the resources that you would like help with: None Currently or been in a relationship where the following occur: No concerns reported THRIVE Score: 0 AUDIT C Alcohol Use Questionnaire (AUDIT-C) 1. How often do you have a drink containing alcohol?: Monthly or less 2. How many drinks containing alcohol do you have on a typical day when you are drinking?: 1 or 2 3. How often do you have six or more drinks on one occasion?: Never Total Score: 1 TERENCE-7 AMB Questionnaire TERENCE-7 Date TERENCE - 7 assessed: 11/04/23 Feeling nervous, anxious, or on edge: 0 = Not at all Not being able to stop or control worryin = Not at all Worrying too much about different things: 0 = Not at all Trouble relaxin = Not at all Being so restless that it is hard to sit still: 0 = Not at all Becoming easily annoyed or irritable: 0 = Not at all Feeling afraid as if something awful might happen: 0 = Not at all Total TERENCE-7 score (0-4 normal; 5-9 mild; 10-14 moderate; 15-21 severe): 0 Source: Developed by Drs. Filemon Jones, Annmarie Berry, Aung Tidwell and colleagues, with an educational binta from [email or web address]. Review of Systems Const Denies chills, Denies fatigue, Denies fever(s), Denies headache(s) and Denies weakness ENT Denies dizziness and Denies headache(s) Card Denies dyspnea Resp Denies cough, Denies dyspnea, Denies wheezing and Denies other (shortness of breath) Musc Denies numbness and Denies tingling Neuro Denies dizziness, Denies headache(s), Denies numbness, Denies tingling and Denies weakness Psych Denies anxiety and Denies depression Endo Denies fatigue Aller/Immun Denies wheezing Physical exam (Primary Care) Vital Signs: Last Vital Signs Temp 99.2 F 04/16/24 12:07 Pulse 84 04/16/24 12:07 Resp 14 04/16/24 12:07 BP 124/70 04/16/24 12:07 Pulse Ox 98 04/16/24 12:07 Oxygen Delivery Method Room Air 04/16/24 12:07 BMI result Body Mass Index 35.5 Tobacco/Smoking Status: Tobacco use Status Tobacco use date assessed 11/04/23 04/16/24 12:12 Patient Tobacco Use Status Former Tobacco user 04/16/24 12:12 Tobacco use type Cigarette 04/16/24 12:12 e-Cigarette/Vaping Use Currently Using 04/16/24 12:12 PHQ-9: PHQ-9 Score PHQ-9: Total score 0 04/16/24 12:14 Thrive Assessment: Date of Thrive Assessment Date Thrive assessed 11/04/23 04/16/24 12:12 Currently or been in a relationship where the following occur: No concerns reported Const General: well developed; No acute distress Nutritional Appearance: well nourished Orientation/consciousness: patient oriented x3 HENMT Head: Yes normocephalic and Yes atraumatic Eyes General: appearance normal, both eyes and all related structures Pupils: Equal, round and reactive pupils present EOM: EOMs intact bilaterally Resp Effort & Inspection: normal respiratory effort Neuro General: patient oriented x3 and gait normal Cranial nerves: Yes Equal, round and reactive pupils present Psych Affect: normal affect Coding Level of Care Code New Pt Level 3 (24538) Diagnoses Elevated liver enzymes R74.8 Assessment & Plan Assessment & Plan (1) Elevated liver enzymes: Code(s): R74.8 - Abnormal levels of other serum enzymes Category: Medical Plan: Liver?enzymes?are?mildly?elevated?again. Had?been?elevated?in?past?and?liver?ultrasound?2?y ears?ago?showed?hepatic?steatosis?with?compensated?advanced?chronic?liver?diseas e. He?had?seen?Gastroenterology?at?the?time. Recheck?liver?enzymes?today. If?the?same?or?higher,?can?recheck?ultrasound. Would?then?back?to?GI?if?any?significant?changes on?ultrasound?or?elastography Orders: Orders Comprehensive Met. Panel Today R74.8 - Abnormal levels of other serum enzymes
[2024-04-16 12:07] VITALS: BP 124/70; PULSE 84; RESP 14; TEMP 37.3; O2SAT 98; BMI 35.5
== END 2024-04-16 12:20 | disposition home or self-care (01) ==
PROVIDERS: PCP Family Medicine; Visit Provider Family Medicine
DX: R74.8 Abnormal levels of other serum enzymes (principal)

== ENCOUNTER → 2024-04-16 11:47 | Outpatient (BNVA) | payer OTHER, SELFPAY | PROVIDERS: PCP Family Medicine; Visit Provider Family Medicine ==

== ENCOUNTER 2024-04-16 12:35 | Outpatient (REF) | payer OTHER, SELFPAY ==
[2024-04-16 15:10] LABS: Alanine Aminotransferase 80 U/L (0-40); Albumin Level 4.3 g/dL (3.5-5.0); Alkaline Phosphatase 49 U/L (39-117); Anion Gap 12 (12-20); Aspartate Amino Transferase 34 U/L (5-37); Bilirubin Total 0.5 mg/dL (0.0-1.0); Blood Urea Nitrogen 18 mg/dL (9-16); Calcium 9.1 mg/dL (8.4-10.2); Carbon Dioxide 26 mmol/L (22-29); Chloride 108 mmol/L (96-108); Estimated Glomerular Filt Rate > 60; Glucose Random 95 mg/dL (60-115); Potassium 4.6 mmol/L (3.3-5.1); Sodium 141 mmol/L (135-145); Total Protein 7.9 g/dL (6.5-8.0)
== END 2024-04-16 12:36 | disposition home or self-care (01) ==
LOC: HO.WFDLDS 12:35
PROVIDERS: Visit Provider Family Medicine
DX: R74.8 Abnormal levels of other serum enzymes (principal)
CPT/HCPCS: 36415; 80053

== ENCOUNTER 2024-05-22 13:50 | Outpatient (AMB) | payer OTHER, SELFPAY ==
--- NOTE | 2024-05-22 13:45 | MHC.PC.OV ---
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 Labs drawn 04/16/24. Reviewed labs with pt. Ongoing elevated ALT. Elevated ALT of 80. AST 34. PFSH Medical History Erythema migrans (Lyme disease) COVID-19 Surgical History Hx of cholecystectomy Family History Father Diabetes Social History (Updated 11/04/23 @ 12:15 by Giovanni Mendoza [facility]) Household Members Other:: alone Housing: Apartment Patient Tobacco Use Status: Former Tobacco user Tobacco use type: Cigarette e-Cigarette/Vaping Use: Currently Using Second Hand Smoke Exposure: No service: No Current occupational status: employed Current occupational exposures/hazards: No Cognitive needs: No Hearing needs: No Vision needs: No Questionnaire Thrive Questionnaire Date Thrive assessed: 11/04/23 TERENCE-7 AMB Questionnaire TERENCE-7 Date TERENCE - 7 assessed: 11/04/23 Source: Developed by Drs. Filemon Jones, Annmarie Berry, Aung Tidwell and colleagues, with an educational binta from [facility]. Physical exam (Primary Care) Tobacco/Smoking Status: Tobacco use Status Tobacco use date assessed 11/04/23 05/22/24 13:46 Patient Tobacco Use Status Former Tobacco user 05/22/24 13:46 Tobacco use type Cigarette 05/22/24 13:46 e-Cigarette/Vaping Use Currently Using 05/22/24 13:46 Thrive Assessment: Date of Thrive Assessment Date Thrive assessed 11/04/23 05/22/24 13:46 Telehealth Telehealth Telehealth Platform: Telephone Location of provider rendering services: practice address Location of patient: address on file Patient Identification confirmed using: Name, : Yes Telehealth method: voice only Patient verbally consented to treatment: Yes Patient verbally consented to billing insurance company: Yes Patient informed of any privacy concerns related to visit: Yes Minutes spent on Phone/Video with Pt.: 5 Coding Level of Care Code Tele Est Pt Level 2 (41130) Diagnoses Elevated liver enzymes R74.8 Assessment & Plan Assessment & Plan (1) Elevated liver enzymes: Code(s): R74.8 - Abnormal levels of other serum enzymes Category: Medical Plan: ALT?liver?enzyme?is?higher. He?has?a?history?of?hepatomegaly?and?abnormal?liver?enzymes.??He?has?had?an?ultrasound?of?the?liver?in?the?past?but?this?was?over?2?years?ago. Will?repeat?ultrasound with?elastography This?is?likely?nonalcoholic?hepatic?steatosis. Encouraged?weight?loss.??Good?hydration?and?decrease?any?Tylenol?or?alcohol?as?well.??Patient?notes?that?he?does?not?drink?alcohol. Orders: Orders US abdomen foster w elastography Today R16.0 - Hepatomegaly, not elsewhere classified, R74.8 - Abnormal levels of other serum enzymes
== END 2024-05-22 17:05 | disposition home or self-care (01) ==
LOC: HO.HMCFM 13:50
PROVIDERS: PCP Family Medicine; Visit Provider Family Medicine
DX: R74.8 Abnormal levels of other serum enzymes (principal)

== ENCOUNTER → 2024-05-22 13:50 | Outpatient (BNVA) | payer OTHER, SELFPAY | PROVIDERS: PCP Family Medicine; Visit Provider Family Medicine | DX: Z13.89 Encounter for screening for other disorder (principal) ==

== ENCOUNTER 2024-07-04 11:21 | Outpatient (REF) | payer OTHER, SELFPAY ==
--- NOTE | ~2024-07-04 | US_ITS ---
EXAMINATION: US ABDOMEN LIMITED WITH LIVER ELASTOGRAPHY HISTORY: R16.0 - Hepatomegaly, not elsewhere classified TECHNIQUE: Real-time grayscale ultrasound imaging of the right upper quadrant was performed and images were reviewed. COMPARISON: Comparison is made with the prior examination dated 04/21/2022. FINDINGS: Liver: The right lobe of the liver measures 16.8 cm in size. The left lobe of the liver measures 9.2 cm in size. The liver demonstrates increased echotexture, consistent with steatosis. No focal mass or intrahepatic biliary ductal dilatation is identified. There is normal hepatopedal flow in the portal vein. Ultrasound elastography of the liver was performed with 10 separate measurements of the liver parenchyma with the patient in the supine position. Measurements were obtained approximately 2 cm below Clay's capsule and perpendicular to the capsule. Images are of satisfactory quality. The median shear wave velocity is 1.51 m/s (previously 1.75 m/s). The interquartile range/median (IQR/median) is 0.11. Gallbladder and biliary tree: The gallbladder is surgically absent. There is no sonographic Gutiérrez sign. The common bile duct is normal in caliber measuring 4 mm. Right Kidney: The right kidney measures 11.1 cm in length. The right kidney is unremarkable, without evidence of masses, hydronephrosis, or calculi. Pancreas: The pancreatic head, neck, and body are unremarkable. The pancreatic tail is obscured by bowel gas. Abdominal aorta and inferior vena cava: The visualized portions of the abdominal aorta and inferior vena cava are normal in caliber. There is no free fluid in the right upper quadrant. US/US abdomen foster w elastography IMPRESSION: Mild hepatomegaly. Hepatic steatosis. The median shear wave velocity in the liver is 1.51 m/s, corresponding to a median liver stiffness of 6.87 kPa. The IQR/median value is 0.11. This is indicative of a quality data set. Findings are indicative of a low elastography value which rules out advanced chronic liver disease in asymptomatic patients. REFERENCE: Society of [employer] in Ultrasound Liver Stiffness Thresholds (2020): LIVER STIFFNESS THRESHOLDS: *Shear wave velocity less than 1.3 m/s (Liver Stiffness equal or less than 5 kPa): High probability of being normal. *Shear wave velocity less than 1.7 m/s (Liver Stiffness less than 9 kPa): In the absence of other known clinical signs, rules out compensated advanced chronic liver disease. *Shear wave velocity between 1.7-2.1 m/s (Liver Stiffness 9-13 kPa): Suggestive of compensated advanced chronic liver disease but need further test for confirmation. *Shear wave velocity between 2.1-2.4 m/s (Liver Stiffness 13-17 kPa): Rules in compensated advanced chronic liver disease. *Shear wave velocity greater than 2.4 m/s (Liver Stiffness over 17 kPa): Suggestive of clinically significant portal hypertension. QUALITY OF DATA SET: *IQR/Median value equal or less than 0.15 implies a quality data set. *IQR/Median value over 0.15 implies a poor quality data set. SIGNIFICANT CHANGE FROM PRIOR EXAM: Significant change if liver stiffness measurement is 10% or greater from prior exam. OTHER CONSIDERATIONS: The stage of liver fibrosis may be overestimated in the setting of acute hepatitis, liver inflammation, elevated liver function tests, hepatic vascular congestion, obstructive cholestasis, non-fasting state, and infiltrative diseases such as amyloidosis and lymphoma. In some patients with NAFLD, the liver stiffness thresholds for compensated advanced chronic liver disease may be lower. In causes other than viral hepatitis and NAFLD, liver stiffness thresholds are not well established. Electronically signed by: Filemon Jean Baptiste MD 07/04/2024 12:32 PM EDT
== END 2024-07-04 11:22 | disposition home or self-care (01) ==
LOC: HO.US 11:21
PROVIDERS: PCP Family Medicine; Visit Provider Family Medicine
DX: R16.0 Hepatomegaly, not elsewhere classified (principal); R74.8 Abnormal levels of other serum enzymes
CPT/HCPCS: 76705; 76981

== ENCOUNTER → 2024-07-04 11:30 | Outpatient (BNV) | payer OTHER, SELFPAY | PROVIDERS: PCP Family Medicine; Visit Provider Radiology Diagnostic Radiology | DX: R16.0 Hepatomegaly, not elsewhere classified (principal) | CPT/HCPCS: 76705; 76981 ==